=== PATIENT | male | born 2000 | race Caucasian/White ===

== ENCOUNTER 2022-04-18 05:15 | Emergency (ER) | payer MEDICAID, SELFPAY ==
[2022-04-18 05:56] VITALS: BP 110/45; PULSE 124; RESP 24; TEMP 39.2; O2SAT 97; BMI 23.6
[2022-04-18] MEDS: Ibuprofen 600 MG TABLET PO (06:16)
--- NOTE | 2022-04-18 06:52 | ED_ITS ---
HPI - General Adult General Chief complaint: Fever Stated complaint: covid+ , headache, body ache, fever Time Seen by Provider: 04/18/22 06:03 Source: patient and family (Mother) Mode of arrival: ambulatory History of Present Illness HPI narrative: 21-year-old male who presents with nausea subjective fevers, body aches, and nausea since this morning and states that he was at [place] returned yesterday. In addition, he states that his mother to go home COVID-19 test which was positive and has been feeling poorly since Tuesday. Related Data Allergies Allergy/AdvReac Type Severity Reaction Status Date / Time No Known Allergies Allergy Unverified 06/05/20 17:32 [No Known Allergies*] Review of Systems Review of Systems: Pertinent positives and negatives as stated in HPI 10 point review of systems is otherwise negative. PMFSH Past Medical History Source: nursing notes reviewed Social History Social History Advance Directives: No Advance Directives Information Provided: No Physical Exam ED Vital Signs: Vital Signs - 24 hr 04/18/22 05:56 Temperature 102.6 F H Pulse Rate 124 H Respiratory Rate 24 H Blood Pressure 110/45 L Pulse Oximetry 97 Oxygen Delivery Method Room Air BMI result Body Mass Index 23.6 VITAL SIGNS: Reviewed. GENERAL: Well developed, well nourished, in no acute distress. HEAD: Normocephalic/atraumatic EYES: PERRLA, EOMI EARS: Ext canals without abnormality OROPHARYNX: no oral lesions noted, posterior pharynx clear LUNGS: Normal breath sounds. No adventitious sounds or accessory muscle use. SpO2<97> CARDIOVASCULAR: Regular rate and rhythm without noted murmurs ABDOMEN: Soft, non-tender, non-distended with bowel sounds. SKIN: Inspection of the skin reveals no rashes NEUROLOGIC: Alert and oriented x 4. Strength and sensation to light touch were grossly intact x 4. Course Course Course Narrative: 21-year-old male with history and clinical presentation consistent with viral syndrome and positive COVID-19 exposure and on review investigations he is noted be COVID-19 positive and has received antipyretics as well as antinausea medication and is otherwise discharged home in stable condition. Medical Decision Making Lab Data Labs: Lab Results 04/18/22 Range/Units 07:04 COVID-19 ([facility]JANDRO) Positive A (Negative) COVID-19 Clin Com See Note Discharge Plan Discharge Clinical Impression: Viral syndrome, Lab test positive for detection of COVID-19 virus Patient Disposition: Home, Self-Care Instructions: Viral Syndrome (ED), COVID-19 (Coronavirus Disease 2019) (ED) Additional Instructions: 1. Recommend [id number] Tylenol/ibuprofen as needed for body aches, headaches, temperatures greater than 100.4. Increase fluid hydration especially with water. 2. You must isolate for the next 5 days and thereafter follow all [place] and Federal so guidelines for COVID-19. You have been diagnosed with COVID-19 here in the ER. 3. Follow-up with your primary care provider via telemedicine appointment. Return to the ER for worsening symptoms.
[2022-04-18] MEDS: Acetaminophen 325 MG TABLET 975 MG PO (06:58)
[2022-04-18] MEDS: Ondansetron ODT 4 MG TAB.RAPDIS TRANSLINGU (06:58)
[2022-04-18 07:31] LABS: COVID-19 Test Positive (Negative); IDNOW Serial# 16C4AD1C
== END 2022-04-18 08:17 | disposition home or self-care (01) ==
PROVIDERS: Emergency Medicine; Emergency Provider Student in an Organized Health Care Education/Training Program
DX: U07.1 COVID-19 (principal); R50.9 Fever, unspecified; M79.10 Myalgia, unspecified site
CPT/HCPCS: 87635; 99283

== ENCOUNTER 2023-05-27 12:01 | Outpatient (AMB) | payer MEDICAID, SELFPAY ==
--- NOTE | 2023-05-27 12:02 | A.OFFPC_ITS ---
Vital Signs 3 05/27/23 12:04 Height 5 ft 9 in Weight 147 lb 6 oz BMI 21.8 BP 102/66 Blood Pressure Location Lt brachial Position Sitting Pulse 75 Pulse Source Pulse Oximeter Pulse Oximetry (%) 98 Oxygen Delivery Method Room Air Intake Visit Reasons: New Patient Intake Note: Patient is a new patient here to establish care for physical. Transferring care from Dr Marm[facility] ([facility]. Medical records have not been requested and have not received. Glued Wood Tester Required: No Pharmaceutical Compounding Supervisor: Not Required per policy Accompanied by: Self / Same As Patient Allergies No Known Allergies [No Known Allergies*] Allergy (Verified 05/27/23 12:16) Medication List - Last Reconciled 05/27/23 by RAMONA Hoskins No Known Home Meds Tobacco use date assessed: 05/27/23 Dental Screening Dental Screen Date: 05/27/23 Did you have a dental visit in the last 12 months?: No Did you have a dental problem in the last 6 months where you did not have access to dental care?: No Was dental information given to patient?: No HPI HPI Comments 2 History of Present Illness0 Details 22-year-old new patient presents today f or physical exam. Patient denies significant medical history. Patient states has feeling anxious lately josiah 7 positive for mild anxiety. Discussed counseling referral, patient agreeable. Denies any panic or need for medication at this time. Patient reports rash to Center chest that is spreading to shoulder blades and left-sided neck. Patient reports has been present for 1 year, denies any itching pain. Denies any new lotions, creams, soaps, detergents or products. Does not take any daily medications. Pcp Dr. Marmolejo. [facility]. tinea vesicolor. [facility] Medical History (Updated 05/27/23 @ 12:31 by RAMONA Hoskins) ADHD Surgical History History of hernia surgery Family History (Updated 05/27/23 @ 12:18 by RAMONA Hoskins) Mother HTN (hypertension) Diabetes Father No problems noted. Other Substance use disorder Social History (Updated 05/27/23 @ 12:19 by RAMONA Hoskins) Housing: Apartment Alcohol intake: current Alcohol intake frequency: a few times a month Patient Tobacco Use Status: Never used Tobacco e-Cigarette/Vaping Use: Never Used Second Hand Smoke Exposure: No service: No Current occupational status: unemployed Cognitive needs: No Hearing needs: No Vision needs: Yes (glasses) Questionnaire PHQ-9 Over the last 2 weeks, how often have you been bothered by any of the following problems? 1. Little interest or pleasure in doing things: not at all 2. Feeling down, depressed, or hopeless: not at all 3. Trouble falling or staying asleep, or sleeping too much: not at all 4. Feeling tired or having little energy: not at all 5. Poor appetite or overeating: not at all 6. Feeling bad about yourself - or that you are a failure or have let yourself or your family down: not at all 7. Trouble concentrating on things, such as reading the newspaper or watching television: not at all 8. Moving or speaking so slowly that other people could have noticed. Or the opposite - being so fidgety or restless that you have been moving around a lot more than usual: not at all 9. Thoughts that you would be better off or of hurting yourself in some way: not at all Total score: 0 Depression Screening Interpretation: Negative 16419 - PHQ-9 Billing: Yes Source: Developed by Drs. Russell Salter, Natacha Romero, Heladio Archer and colleagues, with an educational jutsyn from [employer]. Thrive Questionnaire Date Thrive assessed: 05/27/23 I am a: Patient What is your living situation today?: I have a steady place to live Within the past 12 months, did the food you bought not last and you didn't have the money to get more?: Never true Within the past 12 months, did you worry whether your food would run out before you got money to buy more?: Never true Do you have trouble paying for medicines?: No Do you have trouble getting transportation to medical appointments?: No Do you have trouble paying your heating and electricity bill?: No Do you have trouble taking care of your child, family member or friend?: No Do you have trouble with day-to-day activities such as bathing, preparing meals, shopping, managing finances, etc.?: No Are you currently unemployed and looking for a job?: No Are you interested in more education?: No Currently or been in a relationship where the following occur: no concerns reported AUDIT C Alcohol Use Questionnaire (AUDIT-C) 1. How often do you have a drink containing alcohol?: Never Total Score: 0 JOSIAH-7 AMB Questionnaire JOSIAH-7 Date JOSIAH - 7 assessed: 05/27/23 Feeling nervous, anxious, or on edge: 3 = Nearly every day Not being able to stop or control worryin = Not at all Worrying too much about different things: 0 = Not at all Trouble relaxin = Not at all Being so restless that it is hard to sit still: 1 = Several days Becoming easily annoyed or irritable: 3 = Nearly every day Feeling afraid as if something awful might happen: 0 = Not at all Total JOSIAH-7 score (0-4 normal; 5-9 mild; 10-14 moderate; 15-21 severe): 7 Source: Developed by Drs. Russell Salter, Natacha Romero, Heladio Archer and colleagues, with an educational jsutyn from [employer]. JOSIAH-7 Assessment Billing JOSIAH-7 Assessment Tool: JOSIAH-7 Assessment 03897 Review of Systems Const Denies chills, Denies fatigue, Denies fever(s) and Denies poor appetite Eyes Denies no additional complaints ENT Reports Normal hearing present Card Denies chest pain, Denies syncope, Denies rapid heart rate and Denies dyspnea Resp Denies cough and Denies dyspnea GI Denies change in stool character, Denies constipation, Denies diarrhea, Denies nausea and Denies vomiting Denies dysuria, Denies urinary frequency and Denies urinary urgency Neuro Reports Normal hearing present, Denies confusion and Denies syncope Psych Denies confusion Endo Denies fatigue Physical exam (Primary Care) Vital Signs: Last Vital Signs Pulse 75 05/27/23 12:04 BP 102/66 05/27/23 12:04 Pulse Ox 98 05/27/23 12:04 Oxygen Delivery Method Room Air 05/27/23 12:04 BMI result Body Mass Index 21.8 Tobacco/Smoking Status: Tobacco use Status Tobacco use date assessed 05/27/23 05/27/23 12:12 Patient Tobacco Use Status Never used Tobacco 05/27/23 12:12 e-Cigarette/Vaping Use Never Used 05/27/23 12:12 PHQ-9: PHQ-9 Score PHQ-9: Total score 0 05/27/23 12:12 Depression Screening Interpretation: Negative Thrive Assessment: Date of Thrive Assessment Date Thrive assessed 05/27/23 05/27/23 12:12 Currently or been in a relationship where the following occur: no concerns reported Const General: No confusion Orientation/consciousness: No confusion HENMT Head: Yes normocephalic and Yes atraumatic Ears: external ears normal and TM's normal bilaterally General nose exam: Normal external nose present and Normal nasal mucous membranes and turbinates present Face and sinus: Yes normal facial exam and Yes sinuses nontender Mouth: moist mucous membranes Throat: Yes tonsils normal Eyes Conjunctivae: conjunctivae normal Sclerae: sclerae normal Pupils: Equal, round and reactive pupils present and Pupils normal by confrontation EOM: EOMs intact bilaterally Direct Ophthalmoscopy: normal light reflex Neck Neck: Yes no lymphadenopathy and Yes supple Thyroid: Thyroid normal Chest Chest palpation & inspection: normal inspection of the chest Resp Effort & Inspection: normal respiratory effort Auscultation: clear to auscultation bilaterally, no crackles, no rhonchi and no wheezes Cardio Rate: regular rate Rhythm: regular rhythm Peripheral pulses: radial pulses present and dorsalis pedis present GI Inspection: Yes normal to inspection Palpation (GI): Soft to palpation, nontender and No hepatosplenomegaly present Auscultation: normoactive bowel sounds Neuro General: No confusion Cranial nerves: Yes Equal, round and reactive pupils present and Yes Normal hearing present Cognition (Neuro): normal cognition Gait exam (Neuro): Normal gait present Motor exam (neuro): 5/5 motor strength present throughout Deep tendon reflexes (DTR's): Right brachioradialis reflex intensity grade: 2+, Left brachioradialis reflex intensity grade: 2+, Right patellar reflex intensity grade: 2+ and Left patellar reflex intensity grade: 2+ Extrem General: No edema Shoulder/upper arm images: 2 1. hyperpigmented splotches noted to chest extending up left side of neck. 2. hyperpigmented splotches noted to chest extending up left side of neck. Assessment and Plan Assessment & Plan (1) Generalized anxiety disorder: Code(s): F41.1 - Generalized anxiety disorder Plan: Referral entered to counseling. TSH level ordered to rule out hyperthyroidism. (2) Physical exam, annual: Code(s): Z00.00 - Encounter for general adult medical examination without abnormal findings Plan: Follow-up 1 year (3) Tinea versicolor: Code(s): B36.0 - Pityriasis versicolor Plan: Rash most consistent with fungal rash. Ketoconazole cream prescribed b.i.d. x2 weeks. Patient advised if no improvement following cream to follow-up with PCP for further evaluation and treatment Plan Follow-up in 1 year sooner needed. Orders: Orders 2 Comprehensive Met. Panel Today Z13.1 - Encounter for screening for diabetes mellitus TSH reflex Free T4 Today Z13.29 - Encounter for screening for other suspected endocrine disorder Medications: New 2 ketoconazole 2% apply twice a day x 2weeks 1 appl topical BID 30 grams 0RF B36.0 - Pityriasis versicolor, Z00.00 - Encounter for general adult medical examination without abnormal findings Coding Level of Care Code New Pt Prev Care 18-39yr([id number] Diagnoses Generalized anxiety disorder F41.1 Physical exam, annual Z00.00 Tinea versicolor B36.0 Additional Codes JOSIAH-7 Assessment Billing - JOSIAH-7 Assessment Tool: JOSIAH-7 Assessment 06948 ([id number])
[2023-05-27 12:04] VITALS: BP 102/66; PULSE 75; O2SAT 98; BMI 21.8
== END 2023-05-27 12:33 | disposition home or self-care (01) ==
PROVIDERS: Visit Provider Nurse Practitioner Family
DX: Z00.00 Encounter for general adult medical examination without abnormal findings (principal); F41.1 Generalized anxiety disorder; B36.0 Pityriasis versicolor
CPT/HCPCS: 99385

== ENCOUNTER 2023-08-26 19:02 | Emergency (ER) | payer MEDICAID, SELFPAY ==
--- NOTE | ~2023-08-26 | XR_ITS ---
EXAMINATION: XR WRIST, RIGHT XR HAND, RIGHT CLINICAL INFORMATION: Pain/swelling after lifting boxes. COMPARISON: None available. TECHNIQUE: 4 views of the right wrist/hand. FINDINGS: The bones and soft tissues are normal. No fracture. Alignment is anatomic. Joint spaces are maintained. No erosions or soft tissue calcifications. XR/XR hand wrist RT IMPRESSION: Normal right hand and wrist.
[2023-08-26 19:38] VITALS: BP 116/61; PULSE 82; RESP 18; TEMP 37; O2SAT 97; BMI 21.7
--- NOTE | 2023-08-26 22:10 | ED.EXTPRO ---
HPI - Extremity Problem General Chief complaint: Extremity Injury, Upper Stated complaint: RT hand pain Time Seen by Provider: 08/26/23 22:09 Source: patient and RN notes reviewed Mode of arrival: ambulatory Limitations: no limitations History of Present Illness HPI Narrative: This is a 23-year-old male, with no known past medical history, presenting to the emergency department complaints of right wrist pain and swelling x 2 days. He states that the wrist pain worsens with movement and with palpation. Patient reports that he works at [employer], often times lifting boxes and moving boxes. He denies any recent falls or direct trauma to his wrist. He states that he has tried applying icy Hot to his wrist which has provided a without any relief. Denies history of wrist problems or pain in the past. He is right-handed. Denies any fevers or chills. No numbness or tingling. No other complaints or concerns at this time. MD Complaint: extremity pain and extremity swelling Onset (ago): day(s) Pain Consistency: constant Quality: aching Radiation: none Relieving factors: nothing Exacerbating factors: nothing Associated symptoms: denies other symptoms Related Data Previous Rx's Medication Instructions Recorded ketoconazole 2 % topical cream 1 appl topical BID #30 grams 05/27/23 ibuprofen 600 mg tablet 600 mg PO Q6H PRN pain #30 tabs 08/26/23 Allergies Allergy/AdvReac Type Severity Reaction Status Date / Time No Known Allergies Allergy Verified 08/26/23 19:37 [No Known Allergies*] Review of Systems Review of Systems: Yes all other systems are reviewed and are negative Constitutional: Constitutional: Reports as per [facility] Past Medical History Attestation statement: The following information was validated with the patient. Medical History ADHD Surgical History History of hernia surgery Family History Family History Mother HTN (hypertension) Diabetes Father No problems noted. Other Substance use disorder Social History Social History Housing: Apartment Alcohol intake: current Alcohol intake frequency: a few times a month Patient Tobacco Use Status: Never used Tobacco e-Cigarette/Vaping Use: Never Used Second Hand Smoke Exposure: No service: No Current occupational status: unemployed Cognitive needs: No Hearing needs: No Vision needs: Yes (glasses) Physical Exam Vital Signs: Vital Signs: Last Vital Signs Temp 98.6 F 08/26/23 19:38 Pulse 82 08/26/23 19:38 Resp 18 08/26/23 19:38 BP 116/61 08/26/23 19:38 Pulse Ox 97 08/26/23 19:38 O2 Del Method Room Air 08/26/23 19:38 BMI result Body Mass Index 21.7 Const: General: cooperative, comfortable and no acute distress Orientation/consciousness: patient oriented x3 Limitations: no limitations HEENT: Head: Yes normal to inspection, Yes normocephalic and Yes atraumatic Ears: hearing grossly normal bilaterally General nose exam: Normal external nose present Face and sinus: Yes normal facial exam Mouth: Normal oral and palatal mucosa present, oropharynx normal and moist mucous membranes Throat: Yes posterior oropharynx normal Eyes: General: appearance normal, both eyes and all related structures Eyelids: Yes eyelids normal Conjunctivae: conjunctivae normal Sclerae: sclerae normal Pupils: Equal, round and reactive pupils present EOM: EOMs intact bilaterally Neck: Neck: Yes normal visual inspection, Yes full ROM and Yes no lymphadenopathy Lymphatic: no lymphadenopathy noted Chest: Chest palpation & inspection: normal inspection of the chest Resp: Effort & Inspection: normal respiratory effort and able to speak in complete sentences Auscultation: clear to auscultation bilaterally, no crackles, no rales, no rhonchi and no wheezes Cardio: Rate: regular rate Rhythm: regular rhythm Heart sounds: S1 normal heart sound present and S2 normal heart sound present GI: Inspection: Yes normal to inspection Skin: General skin exam: no rashes or lesions noted Trauma: no lacerations or abrasions Wounds: no wounds Neuro: General: patient oriented x3 and moves all extremities Cranial nerves: Yes Equal, round and reactive pupils present Extrem: Other: Right wrist, with no obvious deformity or swelling, with mild tenderness palpation along the posterior aspect. Radial pulse 2 +. Able to make a fist, full range of motion. General: Yes normal to inspection Right upper extremity: normal to inspection Left upper extremity: normal to inspection Right lower extremity: normal to inspection Left lower extremity: normal to inspection Medical Decision Making Medical Decision Making MDM Narrative: This is a 23-year-old male presenting to the emergency department with complaints of right wrist pain and swelling x2 days. 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 On arrival, vital signs within normal limits. Right wrist without any bony abnormalities or swelling. Patient with tenderness palpation along the posterior aspect, full range of motion intact. X-ray was obtained without any acute findings. No evidence of erythema or edema to suggest infection. Will treat as a wrist sprain, given velcro wrist splint, educated on R.I.C.E techniques, discharged on ibuprofen. Given orthopedic referral if symptoms persist. Also given return precautions. Patient understands and agrees with plan. Patient stable for discharge. Differential Diagnosis Differential Diagnoses: The differential diagnosis associated with the presentation includes Wrist sprain, strain contusion, fracture Radiology Impression Discussion of test interpretation with radiology: I have reviewed the radiologist's reading. Radiologist Impression: EXAMINATION: XR WRIST, RIGHT XR HAND, RIGHT CLINICAL INFORMATION: Pain/swelling after lifting boxes. COMPARISON: None available. TECHNIQUE: 4 views of the right wrist/hand. FINDINGS: The bones and soft tissues are normal. No fracture. Alignment is anatomic. Joint spaces are maintained. No erosions or soft tissue calcifications. XR/XR hand wrist RT IMPRESSION: Normal right hand and wrist. Dictated By: Tanna Maza Discharge Plan Discharge Clinical Impression: Sprain and strain of wrist Patient Disposition: Home, Self-Care Instructions: Wrist Sprain (ED) Additional Instructions: You presented to the emergency department due to right wrist pain. This is likely due to repetitious movements that you do at work. Your x-rays do not show any broken bones. Please take ibuprofen as directed as needed for pain Rest, ice, and gentle range of motion can also help. If any new or worsening symptoms occur including but not limited to decreased range of motion, increased pain, please return for re-evaluation. I am also giving your referral to Orthopedics, if your symptoms persist for longer than 2 weeks, follow-up with orthopedics for further evaluation and treatment. Prescriptions: New ibuprofen 600 mg tablet 600 mg PO Q6H PRN (Reason: pain) Qty: 30 0RF No Action ketoconazole 2 % cream 1 appl topical BID Qty: 30 0RF Rx Instructions: apply twice a day x 2weeks Referrals: [facility] [place] Orth[facility] Surgeons [Provider Group]
== END 2023-08-26 22:49 | disposition home or self-care (01) ==
PROVIDERS: Emergency Provider Emergency Medicine
DX: S63.501A Unspecified sprain of right wrist, initial encounter (principal); M79.641 Pain in right hand; Y93.9 Activity, unspecified; Y92.9 Unspecified place or not applicable; X50.0XXA Overexertion from strenuous movement or load, initial encounter; Y99.0 Civilian activity done for income or pay
CPT/HCPCS: 29125; 73110; 73130; 99283

== ENCOUNTER 2023-10-08 10:26 | Emergency (ER) | payer SELFPAY ==
[2023-10-08 10:39] VITALS: BP 111/88; PULSE 78; RESP 14; TEMP 36.8; O2SAT 98; BMI 20.3
--- NOTE | 2023-10-08 10:45 | ED_ITS ---
HPI - Ear Problem General Chief complaint: Ear Problems Stated complaint: l ear pain Time Seen by Provider: 10/08/23 10:42 Source: patient Mode of arrival: ambulatory Limitations: no limitations History of Present Illness HPI Narrative: Patient is a 23-year-old male presents emergency department for evaluation of left ear concern. He reports he experienced a few days of pain to the left ear, he was flushing the ear with hydrogen peroxide to self treat what we presumed was an ear infection, he then developed a ringing sensation to the ear but he states pain is somewhat improved. He denies fevers, chills, URI symptoms, neck pain. Related Data Previous Rx's Medication Instructions Recorded ketoconazole 2 % topical cream 1 appl topical BID #30 grams 05/27/23 ibuprofen 600 mg tablet 600 mg PO Q6H PRN pain #30 tabs 08/26/23 amoxicillin 875 mg-potassium 1 tab PO BID #14 tabs 10/08/23 clavulanate 125 mg tablet Allergies Allergy/AdvReac Type Severity Reaction Status Date / Time No Known Allergies Allergy Verified 08/26/23 19:37 [No Known Allergies*] Review of Systems Review of Systems: Yes all other systems are reviewed and are negative PMFSH Past Medical History Attestation statement: The following information was validated with the patient. Source: old records reviewed Onset Date is defined in the Problem List Problems that require an onset date and time if occurred within 24 hrs of arrival to the ED Aortic Dissection and Rupture; Neurologic impairment; Cardiopulmonary Arrest; Endotracheal Intubation; Insertion or Replacement of Mechanical Circulatory Assist Device Medical History ADHD Surgical History History of hernia surgery Family History Family History Mother HTN (hypertension) Diabetes Father No problems noted. Other Substance use disorder Social History Social History Housing: Apartment Alcohol intake: current Alcohol intake frequency: a few times a month Patient Tobacco Use Status: Never used Tobacco e-Cigarette/Vaping Use: Never Used Second Hand Smoke Exposure: No service: No Current occupational status: unemployed Cognitive needs: No Hearing needs: No Vision needs: Yes (glasses) Physical Exam Vital Signs: Vital Signs: Last Vital Signs Temp 98.3 F 10/08/23 10:39 Pulse 78 10/08/23 10:39 Resp 14 10/08/23 10:39 BP 111/88 10/08/23 10:39 Pulse Ox 98 10/08/23 10:39 O2 Del Method Room Air 10/08/23 10:39 BMI result Body Mass Index 20.3 Appearance: Alert.?Oriented to person, place and time. No acute distress.?Lilia l affect. Eyes: Pupils equal, round and reactive to light.? ENT: Pharynx normal.?? Left TM erythematous and bulging, no rupture. No mastoid tenderness. Neck: Normal inspection.? Neck supple.?? CVS: Heart sounds normal. Normal heart rate and rhythm.? Pulses normal.?? Respiratory: No respiratory distress.? Lung sounds clear to auscultation bilaterally?? Skin: Skin warm and dry.? Normal skin color.? Neuro: Moves all extremities spontaneously. Sensation intact bilaterally. CN II- XII intact. No focal neuro deficits. Ambulates with normal steady gait. Medical Decision Making Medical Decision Making MDM Narrative: Patient is a 21-year-old male who presents emergency department for evaluation of left ear concern as per HPI. Physical examination is consistent with acute otitis media of the left without spontaneous rupture of the TM. No evidence of mastoiditis on examination. No lesions or drainage to the external canal. Sent prescription for oral antibiotics to pharmacy. Reviewed worrisome signs and symptoms that would warrant re-evaluation in the emergency department. Discussed precautions and avoidance of activities that may increase the risk of TM rupture. Outpatient follow-up with primary care provider. Stable for discharge. Differential Diagnosis Differential Diagnoses: The differential diagnosis associated with the presentation includes ( As noted above) External Record Review External record reviewed: Outpatient record Tests considered The following testing was considered but not selected: CT mastoid, no evidence of mastoiditis on exam, CT deferred Prescription Management I considered prescription management with: Antibiotic Discharge Plan Discharge Clinical Impression: Acute otitis media Qualifiers: Laterality: left Recurrence: non-recurrent Spontaneous tympanic membrane rupture: without spontaneous rupture Patient Disposition: Home, Self-Care Instructions: Ear Infection (ED) Additional Instructions: do not insert anything into the ear such as Q-Tips or irrigate the ear as this may increase the risk of rupture of the eardrum. Complete the entire course of antibiotics as prescribed. Follow-up with your primary care provider. Prescriptions: New amoxicillin-pot clavulanate 875-125 mg tablet 1 tab PO BID Qty: 14 0RF No Action ibuprofen 600 mg tablet 600 mg PO Q6H PRN (Reason: pain) Qty: 30 0RF ketoconazole 2 % cream 1 appl topical BID Qty: 30 0RF Rx Instructions: apply twice a day x 2weeks
== END 2023-10-08 11:17 | disposition home or self-care (01) ==
PROVIDERS: Emergency Provider Student in an Organized Health Care Education/Training Program
DX: H66.92 Otitis media, unspecified, left ear (principal); H92.02 Otalgia, left ear
CPT/HCPCS: 99282; 99283